=== PATIENT | female | born 1990 ===

== ENCOUNTER → 2020-08-05 | Outpatient (CLI) | payer OTHER ==
--- NOTE | 2020-08-05 11:25 | WOMENS IMAGING REPORT ---
EXAM DESCRIPTION: BILAT DIAGNOSTIC MAMMO W/CAD IMAGES COMPLETED DATE/TIME: 08/05/2020 10:33 am REASON FOR STUDY: N64.4 RT BREAST PAIN N64.4 MASTODYNIA N94.6 DYSMENORRHEA, UNSPECIFIED COMPARISON: None. EXAM PARAMETERS: Standard craniocaudal and mediolateral oblique views of each breast recorded using digital acquisition. True lateral view right breast, cone compression views of both breasts. Read with the assistance of CAD: .[facility] [employer] Version 9.2 LIMITATIONS: None. FINDINGS: RIGHT BREAST MASSES: No suspicious masses. CALCIFICATIONS: No new or suspicious calcifications. ARCHITECTURAL DISTORTION: None. ASYMMETRY: None noted. OTHER: No other significant findings. LEFT BREAST MASSES: No suspicious masses. CALCIFICATIONS: No new or suspicious calcifications. ARCHITECTURAL DISTORTION: None. ASYMMETRY: None noted. OTHER: No other significant finding. Ultrasound of the right breast demonstrates no solid or cystic lesion. IMPRESSION: No evidence of malignancy. BREAST DENSITY: b. There are scattered areas of fibroglandular density. BIRAD: ASSESSMENT: 1 Negative. RECOMMENDATION: RECOMMENDED FOLLOW UP: Clinical follow-up of breast pain. SPECIFIC INTERVENTION/IMAGING/CONSULTATION RECOMMENDED:No additional intervention/ imaging/consultati on needed at this time. COMMUNICATION:The imaging findings were not discussed with the patient. Her referring provider has be en notified of the findings. COMMENT: The patient has been notified of the results by letter per [place] requirements. Additional no tification policies are in place for contacting patient with suspicious or incomplete findings. Quality ID #225: The [employer] recommends an annual screening mammogram for women aged 40 years or over. This facility utilizes a reminder system to ensure that all patients receive reminder letters, and/or direct phone calls for appointments. This includes reminders for routine scr eening mammograms, diagnostic mammograms, or other Breast Imaging Interventions when appropriate. Th is patient will be placed in the appropriate reminder system. TECHNICAL DOCUMENTATION: FINDING NUMBER: (1) ASSESSMENT: (1) JOB ID: [id number] 2010 [employer]- All Rights Reserved Reading location - IP/workstation name: [email or web address]
--- NOTE | 2020-08-05 11:29 | WOMENS IMAGING REPORT ---
EXAM DESCRIPTION: U/S BREAST UNILATERAL, COMPL IMAGES COMPLETED DATE/TIME: 08/05/2020 11:21 am REASON FOR STUDY: RT BREAST N64.4 N64.4 MASTODYNIA N94.6 DYSMENORRHEA, UNSPECIFIED COMPARISON: None. LIMITATIONS: None. FINDINGS: Please see correlative diagnostic mammography report from the same date for full findings. IMPRESSION: Please see correlative diagnostic mammography report from the same date for full finding s. TECHNICAL DOCUMENTATION: JOB ID: [id number] 2010 [employer]- All Rights Reserved Reading location - IP/workstation name: [email or web address]
--- NOTE | 2020-08-05 12:24 | WOMENS IMAGING REPORT ---
EXAM DESCRIPTION: TRANSVAGINAL ULTRASOUND IMAGES COMPLETED DATE/TIME: 08/05/2020 11:21 am REASON FOR STUDY: DYSMENORRHEA N94.6 N64.4 MASTODYNIA N94.6 DYSMENORRHEA, UNSPECIFIED LMP 07/19/20 COMPARISON: None. TECHNIQUE: Dynamic and static grayscale images acquired of the pelvis via transvaginal approach and recorded on PACS. Additional selected color Doppler and spectral images recorded. LIMITATIONS: None. FINDINGS: UTERUS: Contour normal. No mass. ENDOMETRIAL STRIPE: No focal or generalized thickening. No masses. CERVIX: No nabothian cysts. RIGHT OVARY AND DOPPLER: Normal size. No worrisome masses. Normal arterial vascular flow without evid ence for torsion. LEFT OVARY AND DOPPLER: Normal size. No worrisome masses. Normal arterial vascular flow without evide nce for torsion. FREE FLUID: None noted. OTHER: No other significant finding. MEASUREMENTS: UTERUS: 9 x 4.9 x 5.3 cm. ENDOMETRIAL STRIPE: 9 mm. RIGHT OVARY: 2.7 x 1.9 x 2.1 cm. LEFT OVARY: 3 x 2.2 x 2.9 cm. IMPRESSION: NORMAL TRANSVAGINAL PELVIC ULTRASOUND. TECHNICAL DOCUMENTATION: JOB ID: [id number] 2010 [employer]- All Rights Reserved Rev-12/07 Reading location - IP/workstation name: [email or web address]
== END ==
LOC: WI 13:32
PROVIDERS: ATTEND Physician Assistant
DX: N64.4 Mastodynia (principal); N94.6 Dysmenorrhea, unspecified
CPT/HCPCS: 76641; 76830; 77066